=== PATIENT | male | born 1970 | race Caucasian/White ===

== ENCOUNTER 2022-06-05 16:23 | Inpatient (IN) | payer OTHER, SELFPAY ==
[2022-06-05 16:41] LABS: #Eosinphils 0.1 thou/uL (0.0-0.7); #Lymphocytes 1.1 thou/uL (1.20-3.40); #Monocytes 0.9 thou/uL (0.11-0.59); #Neutrophils 3.9 thou/uL (1.40-6.50); %Basophils 0.5 % (0.0-1.0); %Eosinophils 2.4 % (0.0-10.0); %Lymphocytes 18.2 % (21.0-51.0); %Monocytes 14.8 % (0.0-10.0); %Neutrophils 64.2 % (42.0-75.0); Hemoglobin 15.8 g/dL (14.0-18.0); Mean Corpuscular Hemoglobin 29.2 pg (27.0-31.0); Mean Corpuscular Volume 85.9 fL (78.0-98.0); Mean Platelet Volume 7.2 fL (7.4-10.4); Platelet Count 211 thou/uL (130-400); Red Blood Cell (RBC) Count 5.42 mill/uL (4.70-6.10); White Blood Cell (WBC) Count 6.1 thou/uL (4.8-10.8)
[2022-06-05 17:03] LABS: ALT (SGPT) 29 U/L (8-55); AST (SGOT) 27 U/L (5-34); Albumin 3.8 g/dL (3.5-5.0); Alcohol Less than 10 mg/dL (Less than 10); Alkaline Phosphatase 145 U/L (40-110); Anion Gap 15 mmol/L (10-20); BUN (Urea Nitrogen) 19 mg/dL (8.4-25.7); Bilirubin, Total 0.5 mg/dL (0.2-1.2); CK (CPK) 146 U/L (30-200); Calc. Creatinine Clearance 0 mL/min (70-130); Calcium 9.1 mg/dL (7.8-10.44); Carbon Dioxide 17 mmol/L (22-29); Chloride 109 mmol/L (98-107); Estimated GFR 97; Globulin 3.4 g/dL (2.4-3.5); Glucose 150 mg/dL (70-105); Potassium 4.2 mmol/L (3.5-5.1); Protein, Total 7.2 g/dL (6.0-8.3); Sodium 137 mmol/L (136-145)
[2022-06-05] MEDS ORDERED: Promethazine HCl 25 MG/ML VIAL IM PRN (17:25)
[2022-06-05] MEDS ORDERED: Dextrose 50% Abboject 50 ML SYRINGE SLOW IVP PRN (17:25)
[2022-06-05] MEDS ORDERED: Dextrose 5% in Water 1,000 ML IV PRN (17:25)
[2022-06-05] MEDS ORDERED: Ondansetron PF 4 MG/2 ML Vial IVP PRN (17:25)
[2022-06-05] MEDS ORDERED: Cyclobenzaprine 10 MG TAB PO PRN (17:28)
[2022-06-05] MEDS ORDERED: Morphine 2 MG/ML VIAL ONE (17:51)
[2022-06-05] MEDS ORDERED: Acetaminophen/Codeine 30-300mg Tablet ONE (17:51)
[2022-06-05] MEDS ORDERED: Boostrix 0.5 ML (Tdap) VIAL (>/=7 yrs of age) ONE (17:51)
[2022-06-05] MEDS ORDERED: CEFAZOLIN 1 GM VIAL ONE (18:06)
[2022-06-05] MEDS ORDERED: TETANUS, DIPHTHERIA TOX,ADULT (TDVAX) 0.5 ML VIAL IM ONE (20:00)
[2022-06-05 20:04] VITALS: BMI 25.3
[2022-06-05] MEDS: Sodium Chloride 0.9% 1,000 ML IV SCH ×2 (20:07→22:56)
[2022-06-05] MEDS: Gabapentin 300 MG CAP PO SCH (20:55)
[2022-06-05] MEDS: Morphine 2 MG/ML VIAL SLOW IVP PRN (20:56)
[2022-06-05] MEDS: Famotidine/PF 20 mg/2ml Vial SLOW IVP SCH (20:56)
[2022-06-05] MEDS: Bacitracin 1 PK TOP SCH (20:56)
[2022-06-05] MEDS ORDERED: Famotidine 20 MG TAB PO SCH (21:00)
[2022-06-05] MEDS: Acetaminophen/Codeine 30-300mg Tablet PO SCH (22:59)
[2022-06-06 05:34] LABS: Amphetamine Detected (NotDetected); Barbiturates Screen Not Detected (NotDetected); Benzodiazepine Screen Not Detected (NotDetected); Cocaine Metabolite Screen Not Detected (NotDetected); Methadone Not Detected (NotDetected); Methamphetamine Detected (NotDetected); Opiate Screen Detected (NotDetected); Oxycodone Screen Not Detected (NotDetected); Phencyclidine (PCP) Not Detected (NotDetected); THC/Cannabinoid Screen Not Detected (NotDetected); Tricyclic Screen Not Detected (NotDetected)
[2022-06-06 05:35] LABS: Phosphorus 3.9 mg/dL (2.3-4.7)
[2022-06-06 05:36] LABS: Anion Gap 11 mmol/L (10-20); BUN (Urea Nitrogen) 15 mg/dL (8.4-25.7); Calc. Creatinine Clearance 148 mL/min (70-130); Calcium 8.5 mg/dL (7.8-10.44); Carbon Dioxide 21 mmol/L (22-29); Chloride 107 mmol/L (98-107); Estimated GFR 111; Glucose 96 mg/dL (70-105); Magnesium 1.9 mg/dL (1.6-2.6); Potassium 3.9 mmol/L (3.5-5.1); Sodium 135 mmol/L (136-145)
[2022-06-06] MEDS: Acetaminophen/Codeine 30-300mg Tablet PO SCH ×4 (05:36→23:59)
[2022-06-06 06:44] LABS: Hemoglobin 14.5 g/dL (14.0-18.0); Mean Corpuscular HGB CONC 33.1 g/dL (32.0-36.0); Mean Corpuscular Hemoglobin 28.9 pg (27.0-31.0); Mean Corpuscular Volume 87.2 fL (78.0-98.0); Mean Platelet Volume 7.2 fL (7.4-10.4); Platelet Count 192 thou/uL (130-400); RBC Distribution Width 12.9 % (11.5-14.5); White Blood Cell (WBC) Count 4.2 thou/uL (4.8-10.8)
[2022-06-06] MEDS: Gabapentin 300 MG CAP PO SCH ×3 (09:58→21:18)
[2022-06-06] MEDS: Bacitracin 1 PK TOP SCH ×3 (09:58→21:18)
[2022-06-06] MEDS: Sodium Chloride 0.9% 1,000 ML IV SCH ×2 (09:58→20:51)
[2022-06-06] MEDS: Famotidine/PF 20 mg/2ml Vial SLOW IVP SCH ×2 (09:58→20:51)
[2022-06-06] MEDS ORDERED: Ketorolac Tromethamine 30 MG/ML VIAL IVP SCH ×2 (12:15→18:00)
[2022-06-06 12:44] LABS: Band 7 % (5-11); Eosinophils 1 % (0-10); Lymphocytes 36 % (21-51); MDiff Complete? YES; Monocytes 10 % (0-10); Neutrophil 46 % (42-75); Platelet Morphology Comment Appears Adequate; Polychromasia SLIGHT = 2-3 cells (100X) (0-2/hpf)
[2022-06-06] MEDS: Morphine 2 MG/ML VIAL SLOW IVP PRN (14:01)
[2022-06-06] MEDS ORDERED: Cyclobenzaprine 10 MG TAB PO PRN (14:24)
[2022-06-07] MEDS: Gabapentin 300 MG CAP PO SCH ×4 (00:44→20:39)
[2022-06-07] MEDS: Acetaminophen/Codeine 30-300mg Tablet PO SCH ×3 (06:11→18:15)
[2022-06-07] MEDS: Bacitracin 1 PK TOP SCH ×3 (09:23→20:39)
[2022-06-07] MEDS: Lidocaine 5% Patch TD SCH (09:23)
[2022-06-07] MEDS: Morphine 2 MG/ML VIAL SLOW IVP PRN (09:24)
[2022-06-07] MEDS: Famotidine/PF 20 mg/2ml Vial SLOW IVP SCH (09:24)
[2022-06-07] MEDS ORDERED: Ibuprofen 800 MG TAB PO SCH (16:15)
[2022-06-07] MEDS ORDERED: Acetaminophen 500 MG TAB PO SCH (18:00)
[2022-06-07] MEDS: Ibuprofen 600 MG TAB PO SCH (20:39)
[2022-06-07] MEDS ORDERED: Transdermal Patch Removal TOP SCH (21:00)
[2022-06-08] MEDS: Acetaminophen 325 MG TAB PO SCH ×3 (00:08→12:34)
[2022-06-08] MEDS: Acetaminophen/Codeine 30-300mg Tablet PO SCH ×3 (00:09→12:33)
[2022-06-08] MEDS: Ibuprofen 600 MG TAB PO SCH (05:42)
[2022-06-08] MEDS: Bacitracin 1 PK TOP SCH (09:11)
[2022-06-08] MEDS: Lidocaine 5% Patch TD SCH (09:11)
[2022-06-08] MEDS: Gabapentin 300 MG CAP PO SCH (09:11)
[2022-06-08 09:27] VITALS: BP 135/87; TEMP 97.5
== END 2022-06-08 13:24 | disposition home or self-care (01) | DRG 963 ==
LOC: ERS 16:23 → NEURO 17:25 → SURG A 06-07 11:45
PROVIDERS: ADMIT Surgery; ATTEND Surgery
DX: S06.6X9A Traumatic subarachnoid hemorrhage with loss of consciousness of unspecified duration, initial encounter (principal); U07.1 COVID-19; S27.2XXA Traumatic hemopneumothorax, initial encounter; S22.42XA Multiple fractures of ribs, left side, initial encounter for closed fracture; F17.210 Nicotine dependence, cigarettes, uncomplicated; Z20.822 Contact with and (suspected) exposure to COVID-19; V29.9XXA Motorcycle rider (driver) (passenger) injured in unspecified traffic accident, initial encounter
CPT/HCPCS: 36415; 70450; 71045; 71250; 72125; 72170; 74177; 80048; 80053; 80306; 80307; 82550; 83735; 84100; 85025; 90471; 90715; 96361; 96374; 96375; 97139; G0390; J0690; J1885; J2270; J7050; S0028; U0003; U0005